=== PATIENT | female | born 1990 | race American Indian/Alaskan Native ===

== ENCOUNTER 2017-08-07 01:31 | Emergency (ER) | payer OTHER ==
[2017-08-07 02:24] VITALS: BP 121/85
--- NOTE | 2017-08-07 04:45 | Emergency Department Report ---
HPI - General Chief Complaint: Extremity Injury, Upper Time Seen by Provider: 08/07/17 04:30 - HPI HPI: Patient is a 26-year-old female with no prior medical history who presents to ED complaining of left middle fingertip swelling and pain for the past 3 days. Patient states she's necessary trauma or injuries to the left finger. Patient just hit swelling began on the tip of her finger nail bed. She denies any fevers/chills/nausea vomiting/swelling/sensation and inability to use hand. ED Past Medical Hx - Past Medical History Previous Medical History?: No - Surgical History Past Surgical History?: No - Social History Smoking Status: Current Every Day Smoker Substance Use Type: Alcohol, Marijuana - Medications Home Medications: Home Medications Medication Instructions Recorded Confirmed Last Taken Type Cephalexin [Keflex] 500 mg PO Q12HR #10 cap 08/07/17 Unknown Rx Ibuprofen [Motrin] 800 mg PO Q8HR PRN #30 tablet 08/07/17 Unknown Rx ED Review of Systems ROS: Stated complaint: LT INDEX FINGER Other details as noted in HPI Constitutional: denies: chills, fever Eyes: denies: eye pain, eye discharge, vision change ENT: denies: ear pain, throat pain Respiratory: denies: cough, shortness of breath, wheezing Cardiovascular: denies: chest pain, palpitations Endocrine: no symptoms reported Gastrointestinal: denies: abdominal pain, nausea, diarrhea Genitourinary: denies: urgency, dysuria, discharge Musculoskeletal: denies: back pain, joint swelling, arthralgia Skin: denies: rash, lesions Neurological: denies: headache, weakness, paresthesias Psychiatric: denies: anxiety, depression Hematological/Lymphatic: denies: easy bleeding, easy bruising Physical Exam - Physical Exam Vital Signs: Vital Signs 08/07/17 02:15 Temperature 98.5 F Pulse Rate 101 H Respiratory 20 Rate Blood Pressure 121/85 O2 Sat by Pulse 99 Oximetry Physical Exam: GENERAL: Alert and oriented x3, no apparent distress, Normal Gait, atraumatic. HEAD: Head is normocephalic and a-traumatic. LUNGS: Symetrical with respiration, No wheezing, no rales or crackles, CTAB. HEART: S1, S2 present, regular rate and rhythm without murmur, no rubs, no gallops. Non tender to palpation EXTREMITIES/MUSCULOSKELETAL: No cyanosis, clubbing, rash, lesions or edema. Full ROM bilaterally. UE/LE Pulses 2+ bilaterally. Right and third digit fingertip swelling and tenderness to palpation consistent with paronychia. Patient ambulated with the fingers no loss of sensation NEUROLOGIC: The patient is cooperative with no focal neurologic deficits. SKIN: Warm and dry, No lesions, No ulceration or induration present. ED Course Vital Signs 08/07/17 02:15 Temperature 98.5 F Pulse Rate 101 H Respiratory 20 Rate Blood Pressure 121/85 O2 Sat by Pulse 99 Oximetry ED Medical Decision Making - Medical Decision Making 26-year-old female presents with paronychia of the third digit of the right hand ED course: Patient received pain medication ED Cleaned with Betadine Digital block obtained with 4 mL of lidocaine without epi , small incision made at the nailbed. Puslike discharge expelled from fingertip Patient tolerated procedure well Discuss acute wound care with patient Discussed with patient antibiotic therapy for the next 5 days. Discussed patient follow up with primary care physician. Vital signs normal patient is in no acute distress. Critical care attestation.: If time is entered above; I have spent that time in minutes in the direct care of this critically ill patient, excluding procedure time. ED Disposition Clinical Impression: Paronychia of finger Disposition: [id number] TO HOME OR SELFCARE Is pt being admited?: No Does the pt Need Aspirin: No Condition: Stable Instructions: Paronychia (ED), Acute Wound Care (ED) Additional Instructions: Make sure to follow up with the primary care physician as discussed. Take all your medications as you've been prescribed. If you have any worsening symptoms or develop new symptoms please return to ED immediately. Prescriptions: Cephalexin [Keflex] 500 mg PO Q12HR #10 cap Ibuprofen [Motrin] 800 mg PO Q8HR PRN #30 tablet PRN Reason: Pain Referrals: PRIMARY CARE, [Primary Care Provider] - 3-5 Days [facility] [Outside] - 3-5 Days [facility] [Outside] - 3-5 Days Forms: Work/School Release Form(ED)
== END 2017-08-07 05:26 | disposition home or self-care (01) ==
LOC: ED 01:31
DX: L03.011 Cellulitis of right finger (principal)